=== PATIENT | female | born 1955 | race Caucasian/White ===

== ENCOUNTER 2018-01-08 06:04 | Inpatient (IN) | payer MEDICAID ==
[~2018-01-08] VITALS: Ht 165.1 cm; Wt 105.2 kg
[2018-01-08] MEDS ORDERED: POLYMYXIN 500,000/BACIT.10,000 UNITS in NS IRR 1 L IR ONE (07:16)
[2018-01-08] MEDS ORDERED: SEVOFLURANE 15 MIN GAS INH ONE (07:20)
[2018-01-08] MEDS ORDERED: OXYMETAZOLINE HCL 0.05% NASAL SPRAY NS ONE ×2 (07:20→07:54)
[2018-01-08] MEDS ORDERED: NS 100 ML BAG IV ONE (07:20)
[2018-01-08] MEDS ORDERED: MIDAZOLAM HCL 5 MG/5 ML VIAL IVP ONE (07:20)
[2018-01-08] MEDS ORDERED: NEOSTIGMINE METHYLSULFATE 1 MG/ML, 10 ML VIAL IVP ONE (07:20)
[2018-01-08] MEDS ORDERED: GLYCOPYRROLATE 0.2 MG/ML VIAL IJ ONE (07:20)
[2018-01-08] MEDS ORDERED: DEXAMETHASONE SOD PHOSPHATE 4 MG/ML VIAL IVP ONE (07:20)
[2018-01-08] MEDS ORDERED: WATER FOR IRRIGATION,STERILE 1,000 ML IRRIG.SOLN IR ONE (07:20)
[2018-01-08] MEDS ORDERED: ROCURONIUM BROMIDE 10 MG/ML (ZEMURON) IV ONE (07:20)
[2018-01-08] MEDS ORDERED: LIDOCAINE/EPI 1% 1:100000 20 ML VIAL INJ ONE ×2 (07:20→07:51)
[2018-01-08] MEDS ORDERED: NS IRRIG SOLN 1000 ML IR ONE (07:20)
[2018-01-08] MEDS ORDERED: PROPOFOL 200MG/ 20ML VIAL (DIPRIVAN) IV ONE (07:20)
[2018-01-08] MEDS ORDERED: EPINEPHrine 1 MG/ML AMP IV ONE (07:20)
[2018-01-08] MEDS ORDERED: fentaNYL CITRATE/PF 100 MCG/2 ML AMP IVP ONE (07:20)
[2018-01-08] MEDS ORDERED: LR 1,000 ML IV.SOLN IV ONE (07:20)
[2018-01-08] MEDS ORDERED: EPINEPHrine 1 MG/ML AMP INFIL ONE (07:54)
[2018-01-08] MEDS ORDERED: INSULIN REGULAR, HUMAN 10 UNITS/0.1 ML INJ IVP ONE ×3 (08:30→15:45)
[2018-01-08] MEDS ORDERED: fentaNYL CITRATE/PF 100 MCG/2 ML AMP IVP PRN ×2 (08:30)
[2018-01-08] MEDS ORDERED: ONDANSETRON HCL 4 MG/2 ML VIAL IVP PRN (08:30)
[2018-01-08] MEDS ORDERED: INSULIN REGULAR, HUMAN 10 UNITS/0.1 ML INJ SUBCUT ONE (11:15)
[2018-01-08] MEDS ORDERED: hydrALAZINE HCL 20 MG/ML VIAL IVP ONE (11:16)
[2018-01-08] MEDS ORDERED: INSULIN ASPART 100 UNITS/ML, 10 ML VIAL SUBCUT ONE (13:45)
[2018-01-08 19:00] VITALS: BP_SYST 116
[2018-01-08 19:30] VITALS: BP_SYST 116
[2018-01-08 20:00] VITALS: BP_SYST 116
[2018-01-08] MEDS ORDERED: SITA100T11 PO (20:24)
[2018-01-08] MEDS ORDERED: LISI-209 PO (20:24)
[2018-01-08] MEDS ORDERED: SIMV20TA2 (20:24)
[2018-01-08] MEDS ORDERED: GLYB5TAB7 PO (20:24)
[2018-01-08 22:34] LABS: HEMOGLOBIN 10.3 g/dL (12.0-16.0); PLATELET COUNT (AUTO) 162 K/uL (130-430); RED BLOOD CELL COUNT(AUTO) 3.25 MIL/uL (4.2-6.2)
[2018-01-08 22:39] LABS: MEAN CORPUSCULAR HEMOGLOBIN 32 pg (27-31); MEAN CORPUSCULAR HGB CONC 35 % (32-36); MEAN CORPUSCULAR VOLUME 92 fL (79.0-98.0); RED CELL DISTRIBUTION WIDTH 11.9 % (9.0-15.0); WHITE BLOOD COUNT (AUTO) 13.8 K/uL (4.8-10.8)
[2018-01-08 22:44] LABS: CALCIUM 8.9 mg/dL (8.4-11.0); CREATININE 1.5 mg/dL (0.55-1.30)
[2018-01-08] MEDS ORDERED: INSULIN ASPART 100 UNITS/ML, 10 ML VIAL (NovoLOG) SUBCUT PRN (22:45)
[2018-01-08 22:50] LABS: BAND % (MANUAL) 3 % (0-6); BASOPHILS % (MANUAL) 0 % (0-2); EOSINOPHILS % (MANUAL) 0 % (0-7); LYMPHOCYTES % (MANUAL) 4 % (20-46); MONOCYTES % (MANUAL) 1 % (0-11)
[2018-01-08] MEDS ORDERED: ZOLPIDEM TARTRATE 5 MG TABLET PO PRN (23:00)
[2018-01-09] MEDS ORDERED: INSULIN ASPART 100 UNITS/ML, 10 ML VIAL SUBCUT SCH
[2018-01-09] MEDS: INSULIN ASPART 100 UNITS/ML, 10 ML VIAL (NovoLOG) SUBCUT PRN ×6 (00:15→20:49)
[2018-01-09 01:12] VITALS: BP_SYST 125
[2018-01-09 06:32] LABS: BASOPHILS % (AUTO) 0.2 % (0.0-2.0); EOSINOPHILS % (AUTO) 0.1 % (0.0-4.0); HEMATOCRIT 29.1 % (36-48); HEMOGLOBIN 10.4 g/dL (12.0-16.0); LYMPHOCYTES # (AUTO) 0.8 K/uL (1.0-5.5); LYMPHOCYTES % (AUTO) 5.6 % (20.5-51.5); MEAN CORPUSCULAR HEMOGLOBIN 33 pg (27-31); MEAN CORPUSCULAR HGB CONC 36 % (32-36); MEAN CORPUSCULAR VOLUME 93 fL (79.0-98.0); MONOCYTES # (AUTO) 0.4 K/uL (0.0-1.0); MONOCYTES % (AUTO) 2.5 % (1.7-9.3); NEUTROPHILS # (AUTO) 13.9 K/uL (1.8-7.7); NEUTROPHILS % (AUTO) 91.6 % (40.0-70.0); PLATELET COUNT (AUTO) 153 K/uL (130-430); RED BLOOD CELL COUNT(AUTO) 3.15 MIL/uL (4.2-6.2); RED CELL DISTRIBUTION WIDTH 12.3 % (9.0-15.0); WHITE BLOOD COUNT (AUTO) 15.1 K/uL (4.8-10.8)
[2018-01-09 07:01] LABS: CALCIUM 9.1 mg/dL (8.4-11.0); CREATININE 1.41 mg/dL (0.55-1.30); POTASSIUM 4.9 mmol/L (3.5-5.1)
[2018-01-09 08:05] VITALS: BP_SYST 124
[2018-01-09 12:40] VITALS: BP_SYST 114
[2018-01-09 15:24] VITALS: BP_SYST 134
[2018-01-09] MEDS ORDERED: glyBURIDE 5 MG TABLET PO ONE (17:00)
[2018-01-09 20:00] VITALS: BP_SYST 139
[2018-01-09] MEDS ORDERED: SIMVASTATIN 20 MG TABLET PO SCH (21:00)
[2018-01-10 00:37] VITALS: BP_SYST 137
[2018-01-10] MEDS: INSULIN ASPART 100 UNITS/ML, 10 ML VIAL (NovoLOG) SUBCUT PRN ×3 (06:11→16:48)
[2018-01-10] MEDS ORDERED: glyBURIDE 5 MG TABLET PO SCH (08:00)
[2018-01-10 08:15] VITALS: BP_SYST 125
[2018-01-10 12:00] VITALS: BP_SYST 129
[2018-01-10 16:44] VITALS: BP_SYST 130
[2018-01-10 17:02] VITALS: BP_SYST 129
[2018-01-11] MEDS ORDERED: LISINOPRIL 5 MG TABLET PO SCH (09:00)
== END 2018-01-10 20:38 | disposition home or self-care (01) | DRG 98 ==
LOC: SDS 06:04 → SMU 19:00 → SDS 21:00
PROVIDERS: ADMIT Internal Medicine; ATTEND Otolaryngology
PROC: 09QW8ZZ Repair Right Sphenoid Sinus, Via Natural or Artificial Opening Endoscopic (ICD-10-PCS; 2018-01-08)
PROC: 09QX8ZZ Repair Left Sphenoid Sinus, Via Natural or Artificial Opening Endoscopic (ICD-10-PCS; 2018-01-08)
PROC: 09QQ8ZZ Repair Right Maxillary Sinus, Via Natural or Artificial Opening Endoscopic (ICD-10-PCS; 2018-01-08)
PROC: 09QR8ZZ Repair Left Maxillary Sinus, Via Natural or Artificial Opening Endoscopic (ICD-10-PCS; 2018-01-08)
PROC: 09QS8ZZ Repair Right Frontal Sinus, Via Natural or Artificial Opening Endoscopic (ICD-10-PCS; 2018-01-08)
PROC: 09BM8ZZ Excision of Nasal Septum, Via Natural or Artificial Opening Endoscopic (ICD-10-PCS; 2018-01-08)
PROC: 09BL8ZZ Excision of Nasal Turbinate, Via Natural or Artificial Opening Endoscopic (ICD-10-PCS; 2018-01-08)
PROC: 09BV8ZZ Excision of Left Ethmoid Sinus, Via Natural or Artificial Opening Endoscopic (ICD-10-PCS; 2018-01-08)
PROC: 09BU8ZZ Excision of Right Ethmoid Sinus, Via Natural or Artificial Opening Endoscopic (ICD-10-PCS; 2018-01-08)
PROC: 09QM8ZZ Repair Nasal Septum, Via Natural or Artificial Opening Endoscopic (ICD-10-PCS; 2018-01-08)
PROC: 09QT8ZZ Repair Left Frontal Sinus, Via Natural or Artificial Opening Endoscopic (ICD-10-PCS; principal; 2018-01-08 07:30)
DX: J32.9 Chronic sinusitis, unspecified (principal); N17.9 Acute kidney failure, unspecified; J34.2 Deviated nasal septum; E11.65 Type 2 diabetes mellitus with hyperglycemia
CPT/HCPCS: 36415; 80048; 82948; 82962; 85007; 85025; 85027; 88305; 88311; C1726; J0171; J0360; J1100; J1815; J2250; J2704; J2710; J3010; J3490; J7120